=== PATIENT | male | born 1975 | race Caucasian/White ===

== ENCOUNTER → 2017-09-27 14:51 | Outpatient (CLI) | payer BC, SELFPAY ==
[2017-09-27 17:40] LABS: Basophils % 0.4 % (0.1-2.0); Eosinophils # 0.2 K/mm3 (0.0-0.4); Eosinophils % 1.6 % (0.1-12.0); Hematocrit 48.9 % (42.0-52.0); Hemoglobin 15.7 g/dL (14.1-18.0); Lymphocytes # 3.4 K/mm3 (0.7-4.5); Lymphocytes % 34.3 K/mm3 (10-50); Mean Corpuscular Hemoglobin 27.3 pg (27.0-31.2); Mean Corpuscular Volume 85.4 fl (80-94); Mean Platelet Volume 7.2 fl (7.4-10.4); Monocytes # 0.7 K/mm3 (0.1-1.0); Monocytes % 7.3 % (1.7-9.3); Neutrophils # 5.6 K/mm3 (1.8-7.8); Neutrophils % 56.4 % (37.0-80.0); Platelet Count 344 K/mm3 (142-424); Red Blood Count 5.73 M/mm3 (4.60-6.20); Red Cell Distribution Width 12.9 % (11.5-17.5)
[2017-09-27 18:15] LABS: Alanine Aminotransferase 34 U/L (12-78); Albumin/Globulin Ratio 1.2 (1.1-1.8); Alkaline Phosphatase 82 U/L (46-116); Anion Gap 13.1 mEq/L (5-15); Bilirubin,Total 0.5 mg/dL (0.2-1.0); Blood Urea Nitrogen 15 mg/dL (7-18); Calcium 9.6 mg/dL (8.5-10.1); Carbon Dioxide 28 mmol/L (21.0-32.0); Chloride 102 mmol/L (98-107); Chol/HDL Ratio 6.2 (1-3.5); Cholesterol 240 mg/dL (140-200); Creatinine,Serum 0.87 mg/dL (0.70-1.30); Estimated Glomerular Filt Rate 97 ml/min (>60); GFR (African American) 117 ML/MIN (>60); Globulin 3.3 gm/dl (1.3-3.2); Glucose 82 mg/dL (74-106); HDL Cholesterol 39 mg/dL (27-67); Sodium 139 mmol/L (136-145); T4 (Thyroxine) 8.7 ug/dl (4.7-13.3); Thyroid Stimulating Hormone 1.69 uIU/ml (0.358-3.740); Total Protein,Serum 7.3 gm/dL (6.4-8.2)
[2017-09-27 18:19] LABS: Triglycerides 591 mg/dL (30-200)
[2017-09-27 18:20] LABS: Aspartate Amino Transferase 17 U/L (15-37); Potassium 4.1 mmoL/L (3.5-5.1)
[2017-09-30 13:27] LABS: Vitamin D 25 Hydroxy 22.3 ng/mL (30.0-100.0)
== END ==
PROVIDERS: Visit Provider Nurse Practitioner Family
DX: M54.40 Lumbago with sciatica, unspecified side (principal)
CPT/HCPCS: 80053; 80061; 82652; 84436; 84443; 85025

== ENCOUNTER → 2018-10-17 13:22 | Outpatient (CLI) | payer BC, SELFPAY ==
[2018-10-17 13:35] LABS: Basophils # 0.1 K/mm3 (0-0.2); Eosinophils # 0.2 K/mm3 (0.0-0.4); Eosinophils % 3.4 % (0.1-12.0); Hematocrit 45.3 % (42.0-52.0); Hemoglobin 14.6 g/dL (14.1-18.0); Lymphocytes # 2.3 K/mm3 (0.7-4.5); Lymphocytes % 38.7 % (10-50); Mean Corpuscular HGB Conc 32.1 g/dL (31.8-35.4); Mean Corpuscular Hemoglobin 27.2 pg (27.0-31.2); Mean Corpuscular Volume 84.7 fl (80-94); Mean Platelet Volume 7.7 fl (7.4-10.4); Monocytes # 0.4 K/mm3 (0.1-1.0); Monocytes % 6.6 % (1.7-9.3); Neutrophils % 50.4 % (37.0-80.0); Platelet Count 303 K/mm3 (142-424); Red Blood Count 5.35 M/mm3 (4.60-6.20); Red Cell Distribution Width 13.1 % (11.5-17.5)
[2018-10-17 14:27] LABS: Alanine Aminotransferase 45 U/L (12-78); Albumin/Globulin Ratio 1.3 (1.1-1.8); Alkaline Phosphatase 71 U/L (46-116); Anion Gap 14.8 mEq/L (5-15); Aspartate Amino Transferase 17 U/L (15-37); Bilirubin,Total 0.5 mg/dL (0.2-1.0); Blood Urea Nitrogen 18 mg/dL (7-18); Calcium 9.4 mg/dL (8.5-10.1); Carbon Dioxide 27 mmol/L (21.0-32.0); Chloride 105 mmol/L (98-107); Chol/HDL Ratio 3.8 (1-3.5); Cholesterol 196 mg/dL (140-200); Creatinine,Serum 1.01 mg/dL (0.70-1.30); Estimated Glomerular Filt Rate 81 ml/min (>60); Free T4 (Free Thyroxine) 1.02 ng/dl (0.76-1.46); GFR (African American) 98 ML/MIN (>60); Globulin 3.1 gm/dl (1.3-3.2); Glucose 99 mg/dL (74-106); HDL Cholesterol 52 mg/dL (27-67); LDL Cholesterol 133 mg/dL (0-130); Potassium 4.8 mmoL/L (3.5-5.1); Sodium 142 mmol/L (136-145); Thyroid Stimulating Hormone 1.64 uIU/ml (0.358-3.740); Total Protein,Serum 7.1 gm/dL (6.4-8.2); Triglycerides 57 mg/dL (30-200); VLDL Cholesterol 11 mg/dL (0-40)
[2018-10-19 21:40] LABS: PSA, Free 0.24 ng/mL; Prostate Specific Ag 1.2 ng/mL (0.0-4.0); Vitamin D 25 Hydroxy 37.3 ng/mL (30.0-100.0)
== END ==
PROVIDERS: Visit Provider Emergency Medicine
DX: R53.83 Other fatigue (principal); I10 Essential (primary) hypertension
CPT/HCPCS: 80053; 80061; 82652; 84153; 84154; 84439; 84443; 85025

== ENCOUNTER → 2019-01-02 16:55 | Outpatient (CLI) | payer BC, SELFPAY ==
[2019-01-02 19:47] LABS: Amphetamine/Metha Screen,Urine Negative ng/mL (<1000); Barbiturates Screen,Urine Negative ng/mL (<200); Benzodiazepines Screen,Urine Negative ng/mL (<200); Cannabinoid Screen,Urine Negative ng/mL (<50); Cocaine Screen,Urine Negative ng/mL (<300); Methadone Screen,Urine Negative ng/mL (<300); Opiate Screen,Urine Negative ng/mL (<300); Phencyclidine Screen,Urine Negative ng/mL (<25)
== END ==
PROVIDERS: Visit Provider Emergency Medicine
DX: F90.9 Attention-deficit hyperactivity disorder, unspecified type (principal)
CPT/HCPCS: 80305

== ENCOUNTER 2019-11-04 00:01 | Emergency (ER) | payer OTHER, SELFPAY ==
[2019-11-04 00:11] VITALS: BP 179/101; PULSE 77; RESP 19; TEMP 36.6; O2SAT 98; BMI 38.4
[2019-11-04 00:39] VITALS: BP 151/75; PULSE 68; RESP 18; O2SAT 95
[2019-11-04 00:44] LABS: Basophils # 0.1 K/mm3 (0-0.2); Basophils % 0.9 % (0.1-2.0); Eosinophils # 0.5 K/mm3 (0.0-0.4); Eosinophils % 4.5 % (0.1-12.0); Hematocrit 41.6 % (42.0-52.0); Lymphocytes % 32.9 % (10-50); Mean Corpuscular Hemoglobin 29.9 pg (27.0-31.2); Mean Corpuscular Volume 83.1 fl (80-94); Mean Platelet Volume 7.5 fl (7.4-10.4); Monocytes # 0.7 K/mm3 (0.1-1.0); Neutrophils # 6.7 K/mm3 (1.8-7.8); Neutrophils % 55.6 % (37.0-80.0); Platelet Count 283 K/mm3 (142-424); Red Blood Count 5.01 M/mm3 (4.60-6.20); Red Cell Distribution Width 13.1 % (11.5-17.5)
[2019-11-04 00:51] LABS: Alanine Aminotransferase 27 U/L (12-78); Albumin Level 4.6 g/dl (3.5-5.0); Albumin/Globulin Ratio 1.5 (1.1-1.8); Alkaline Phosphatase 85 U/L (38-126); Anion Gap 13.9 mEq/L (5-15); Aspartate Amino Transferase 30 U/L (17-59); Bilirubin,Total 0.4 mg/dl (0.2-1.3); Blood Urea Nitrogen 15 mg/dl (9-20); Calcium 9.4 mg/dl (8.4-10.2); Carbon Dioxide 29 mmol/L (22.0-30.0); Chloride 98 mmol/L (98-107); Creatinine Clearance Estimated 177 mL/min (50-200); Estimated Glomerular Filt Rate 92 ml/min (>60); GFR (African American) 111 ML/MIN (>60); Glucose 114 mg/dl (74-100); Potassium 3.9 mmoL/L (3.5-5.1); Sodium 137 mmol/L (136-145); Total Protein,Serum 7.6 g/dl (6.3-8.2)
[2019-11-04 01:00] VITALS: BP 158/93; PULSE 74; RESP 18; O2SAT 95
[2019-11-04 01:30] VITALS: BP 160/89; PULSE 73; RESP 16; O2SAT 95
--- NOTE | 2019-11-04 01:43 | HMH.EDSKAF ---
ED Disposition Clinical Impression: Poison juan dermatitis Disposition: Home, Self-Care Condition on Discharge: Fair Instructions: DI for Skin Abscess Additional Instructions: You appear to have poison juan dermatitis with secondary infection Given a shot of Solu-Medrol 125 mg IM as well as Benadryl, Plan is to discharge home on a Medrol Dosepak as well as Benadryl; Will also prescribe an antibiotic as there appears to be secondary infection Prescriptions: cephALEXin [Keflex 500mg Cap] 500 mg PO TID 7 Days #21 cap Prescription Printed methylPREDNISolone [Medrol] 4 mg PO DIRECTED #21 pack Prescription Printed Referrals: Freddie Brown MD [Primary Care Provider] - Time of Disposition: 01:52 - Critical Care Critical Care Time: No Attestation: On 11/04/19, the high probability of a clinically significant, sudden or life threatening deterioration of the following system(s) required my full and direct attention, intervention and personal management. The time I documented below is in addition to time spent performing reported procedures but includes the following listed in this critical care notation. Medical Decision Making - Medical Records Medical records reviewed: Yes: I reviewed the patient's medical records. MR Comment: pt developed rash to right leg that has worsened over the last week despite using poison juan cream, calamine, benadryl, states he gets this every year. Given a shot of Solu-Medrol 125 mg IM as well as Benadryl, Plan is to discharge patient home on a Medrol Dosepak as well as Benadryl; Will also prescribe an antibiotic as there appears to be secondary infection - Blu Inquiry Pt receiving controlled substance: No Vital Signs: 11/04/19 00:11 11/04/19 00:39 Temperature 97.8 F Temperature Source Oral Pulse Rate [Right Brachial] 77 68 Respiratory Rate 19 18 Blood Pressure [Right Arm] 179/101 H 151/75 H Blood Pressure Mean [Right Arm] 127 100 Blood Pressure Source [Right Arm] Automatic Cuff Automatic Cuff Blood Pressure Position [Right Arm] Sitting Sitting 02 Sat by Pulse Oximetry 98 95 Oxygen Delivery Method Room Air Room Air - Lab Data Lab results reviewed: Yes: I reviewed the patient's lab results. Lab Results 11/04/19 00:30: WBC 12.0 H, RBC 5.01, Hgb 15.0, Hct 41.6 L, MCV 83.1, MCH 29.9, MCHC 36.0 H, RDW 13.1, Plt Count 283, MPV 7.5, Neut % (Auto) 55.6, Lymph % (Auto) 32.9, Early % (Auto) 6.0, Eos % (Auto) 4.5, Baso % (Auto) 0.9, Neut # (Auto) 6.7, Lymph # (Auto) 4.0, Early # (Auto) 0.7, Eos # (Auto) 0.5 H, Baso # (Auto) 0.1 11/04/19 00:30: Sodium 137, Potassium 3.9, Chloride 98, Carbon Dioxide 29, Anion Gap 13.9, BUN 15, Creatinine 0.90, Estimated Creat Clear 177, Estimated GFR 92, Est GFR ( Amer) 111, Glucose 114 H, Calcium 9.4, Total Bilirubin 0.4, AST 30, ALT 27, Alkaline Phosphatase 85, Total Protein 7.6, Albumin 4.6, Globulin 3.0, Albumin/Globulin Ratio 1.5 Result diagrams: 11/04/19 00:30 11/04/19 00:30 Orders (Tests/Meds): ED MEDICATIONS Discontinued Medications Generic Name Dose Route Start Last Admin Trade Name Freq PRN Reason Stop Dose Admin Diphenhydramine HCl 25 mg 11/04/19 00:27 11/04/19 00:44 Benadryl 50mg/1ml Vial IV 11/04/19 00:28 25 mg ONCE ONE Administration Methylprednisolone Sodium Succinate 125 mg 11/04/19 00:27 11/04/19 00:44 Solu-Medrol 125mg/2ml Vial IV 11/04/19 00:28 125 mg ONCE ONE Administration ORDERS Category Date Time Status Blood Culture Stat Micro 11/04/19 00:30 Received Skin/Abscess/FB HPI - General Chief complaint: Skin/Abscess/Foreign Body Stated complaint: Rash on Rt Leg Time Seen by Provider: 11/04/19 01:35 Mode of Arrival: Family Vehicle Source of Information: Patient Limitations: No Limitations Description of Symptoms (Recalled from ER Triage Doc. by RN): pt developed rash to right leg that has worsened over the last week despite using poison juan cream, calamine, benadryl
[2019-11-04 02:07] VITALS: BP 152/94; PULSE 73; RESP 18; TEMP 36.6; O2SAT 98
== END 2019-11-04 02:21 | disposition home or self-care (01) ==
PROVIDERS: Emergency Provider Emergency Medicine; PCP Emergency Medicine
DX: L23.7 Allergic contact dermatitis due to plants, except food (principal); Z88.5 Allergy status to narcotic agent; F17.290 Nicotine dependence, other tobacco product, uncomplicated
CPT/HCPCS: 80053; 85025; 87040; 96374; 96375; 99283

== ENCOUNTER 2020-08-11 12:08 | Emergency (ER) | payer OTHER, SELFPAY ==
[2020-08-11 12:29] VITALS: BP 155/91; PULSE 76; RESP 14; TEMP 37.1; O2SAT 99; BMI 33.9
--- NOTE | 2020-08-11 13:10 | HMH.EDUTC ---
[facility] [place] Disposition Clinical Impression: Bronchitis Sinusitis Qualifiers: Sinusitis location: unspecified location Chronicity: acute Recurrence: non-recurrent Qualified Code(s): J01.90 - Acute sinusitis, unspecified Disposition: Home, Self-Care Condition on Discharge: Good Instructions: DI for Sinusitis, DI for Acute Bronchitis Additional Instructions: Drink plenty of fluids. Take tylenol or ibuprofen for pain or fever. Take the medications as directed. Follow up with your regular doctor. GO TO THE ER FOR ANY WORSENING SYMPTOMS The cough medication (promethazine dm) will make you drowsy, so don't drive or operate heavy machinery after taking it. Prescriptions: Promethazine/Dextromethorphan [Promethazine-Dm Syrup] 5 ml PO Q6HP PRN #240 syrup PRN Reason: Cough Transmission Status: Received by [id number] predniSONE [Prednisone 20mg Tab] 20 mg PO BID 4 Days #8 tab Transmission Status: Received by [id number] Azithromycin [Z-Adrian 250mg Tab*] 250 mg PO UD DOSE PK #6 tab Transmission Status: Received by [id number] Referrals: Freddie Brown MD [Primary Care Provider] - Forms: Work/School Release Time of Disposition: 13:12 Medical Decision Making - Medical Records Medical records reviewed: No: I reviewed the patient's medical records. - Blu Inquiry Pt receiving controlled substance: No Vital Signs: 08/11/20 12:29 08/11/20 13:19 Temperature 98.8 F 98.8 F Temperature Source Oral Oral Pulse Rate 76 Pulse Rate [Right Radial] 76 Respiratory Rate 14 16 Blood Pressure 155/91 H Blood Pressure [Right Arm] 155/91 H Blood Pressure Mean [Right Arm] 112 02 Sat by Pulse Oximetry 99 Oxygen Delivery Method Room Air Room Air [facility] [place] HPI - General Stated complaint: cough,congestion,runny nose Time Seen by Provider: 08/11/20 13:10 Mode of Arrival: Ambulatory Source of Information: Patient Limitations: No Limitations Description of Symptoms (Recalled from Triage Doc. by RN): Runny nose, head congestion, cough HEENT Symptoms (Recalled from RN notes): No Resp Symptoms (Recalled from RN notes): Yes Skin Symptoms (Recalled from RN notes): No MS Symptoms (Recalled from RN notes): No Functional Status (Recalled from RN notes): na - History of Present Illness Provider Complaint: He states that for the past 3 days he has had sinus and chest congestion. He denies any fever or chills. - Related Data Previous Rx's Medication Instructions Recorded methylphenidate HCl 36 mg 36 mg PO DAILY #30 tab 01/02/19 tablet,extended release 24 hr buspirone 10 mg tablet 10 mg PO BID #60 tab 05/07/19 cephALEXin [Keflex 500mg Cap] 500 mg PO TID 7 Days #21 cap 11/04/19 methylPREDNISolone [Medrol] 4 mg PO DIRECTED #21 pack 11/04/19 Azithromycin [Z-Adrian 250mg Tab*] 250 mg PO UD DOSE PK #6 tab 08/11/20 Promethazine/Dextromethorphan 5 ml PO Q6HP PRN #240 syrup 08/11/20 [Promethazine-Dm Syrup] predniSONE [Prednisone 20mg 20 mg PO BID 4 Days #8 tab 08/11/20 Tab] Allergies Allergy/AdvReac Type Severity Reaction Status Date / Time acetaminophen [From PERCOCET] Allergy Intermediate I-ITCHING Verified 03/09/19 15:12 oxycodone [From PERCOCET] Allergy Intermediate I-ITCHING Verified 03/09/19 15:12 - Worker's Comp Is this a Worker's Comp case?: No [facility] History - Hepatitis A Screen Drug use history?: No High risk sexual behaviors?: No History of sexually transmitted infection?: No Currently employed?: No Childcare worker?: No Do you have indoor plumbing?: Yes Do you have electricity?: Yes Attestation statement:: This patient has been screened for Hepatitis A risk factors. I have reviewed the patient's past medical history: Yes Medical History: Reports:: Anxiety Denies:: Cancer, Diabetes Mellitus Type 1, Diabetes Mellitus Type 2, MRSA Comment: adhd Other Surgeries: Yes: No Previous Surgery Amputation: No Fractures: No - Social History Smok
[2020-08-11 13:19] VITALS: BP 155/91; PULSE 76; RESP 16; TEMP 37.1; O2SAT 99
== END 2020-08-11 13:21 | disposition home or self-care (01) ==
PROVIDERS: Emergency Provider Nurse Practitioner Family; PCP Emergency Medicine
DX: Z20.822 Contact with and (suspected) exposure to COVID-19 (principal); J20.9 Acute bronchitis, unspecified; J01.90 Acute sinusitis, unspecified; F41.9 Anxiety disorder, unspecified
CPT/HCPCS: 99202; G0463; U0003

== ENCOUNTER 2020-09-26 15:29 | Emergency (ER) | payer OTHER, SELFPAY ==
[2020-09-26 15:36] VITALS: BP 157/91; PULSE 88; RESP 16; TEMP 36.6; O2SAT 98; BMI 34.4
[2020-09-26 15:40] VITALS: BP 157/91; PULSE 88; RESP 16; TEMP 36.6; O2SAT 98; BMI 34.5
[2020-09-26 16:33] VITALS: BP 157/91; PULSE 88; RESP 16; TEMP 36.7; O2SAT 98
--- NOTE | 2020-09-26 16:36 | HMH.EDUTC ---
[facility] [place] Disposition Clinical Impression: Laceration of left hand Qualifiers: Encounter type: initial encounter Foreign body presence: without foreign body Qualified Code(s): S61.412A - Laceration without foreign body of left hand, initial encounter Disposition: Home, Self-Care Condition on Discharge: Good Instructions: How to Care for a Laceration After Repair, DI for Laceration Repair -- Simple Additional Instructions: Keep the wound clean and dry. Keep a dressing on it if you are going to be getting it dirty. Watch the for signs of infection, such as redness, swelling, drainage, fever. etc. Take tylenol or ibuprofen for pain. Follow up with your regular doctor. Return in 10 days to have the sutures removed. GO TO THE ER FOR ANY WORSENING SYMPTOMS OR CONCERNS. Prescriptions: cephALEXin [cephALEXin 500mg capsule] 500 mg PO Q6H 10 Days #40 cap Transmission Status: Received by [id number] Referrals: Freddie Brown MD [Primary Care Provider] - Time of Disposition: 16:38 Medical Decision Making - Medical Records Medical records reviewed: No: I reviewed the patient's medical records. - Blu Inquiry Pt receiving controlled substance: No Vital Signs: 09/26/20 15:36 09/26/20 15:40 09/26/20 16:33 Temperature 98 F 98 F 98.0 F Temperature Source Oral Oral Pulse Rate 88 Pulse Rate [Radial] 88 88 Respiratory Rate 16 16 16 Blood Pressure 157/91 H Blood Pressure [Right Arm] 157/91 H 157/91 H Blood Pressure Mean [Right Arm] 113 113 Blood Pressure Source [Right Arm] Automatic Cuff Blood Pressure Position [Right Arm] Sitting 02 Sat by Pulse Oximetry 98 98 Oxygen Delivery Method Room Air Room Air Orders (Tests/Meds): ED MEDICATIONS Discontinued Medications Generic Name Dose Route Start Last Admin Trade Name Freq PRN Reason Stop Dose Admin Tetanus/Reduced Diphtheria/Acell Pertussis 0.5 ml 09/26/20 16:03 09/26/20 16:25 Tet/Diphth/Pert-Adult 0.5ml Syringe IM 09/26/20 16:04 0.5 ml .ONCE ONE Administration [facility] [place] HPI - General Stated complaint: [id number] [id number] lac to L hand Time Seen by Provider: 09/26/20 16:00 Mode of Arrival: Ambulatory Source of Information: Patient Limitations: No Limitations Description of Symptoms (Recalled from Triage Doc. 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 His tetanus immunization is not up to date. - Related Data Previous Rx's Medication Instructions Recorded methylphenidate HCl 36 mg 36 mg PO DAILY #30 tab 01/02/19 tablet,extended release 24 hr buspirone 10 mg tablet 10 mg PO BID #60 tab 05/07/19 cephALEXin [Keflex 500mg Cap] 500 mg PO TID 7 Days #21 cap 11/04/19 methylPREDNISolone [Medrol] 4 mg PO DIRECTED #21 pack 11/04/19 Azithromycin [Z-Adrian 250mg Tab*] 250 mg PO UD DOSE PK #6 tab 08/11/20 Promethazine/Dextromethorphan 5 ml PO Q6HP PRN #240 syrup 08/11/20 [Promethazine-Dm Syrup] predniSONE [Prednisone 20mg 20 mg PO BID 4 Days #8 tab 08/11/20 Tab] cephALEXin [cephALEXin 500mg 500 mg PO Q6H 10 Days #40 cap 09/26/20 capsule] Allergies Allergy/AdvReac Type Severity Reaction Status Date / Time acetaminophen [From PERCOCET] Allergy Intermediate I-ITCHING Verified 03/09/19 15:12 oxycodone [From PERCOCET] Allergy Intermediate I-ITCHING Verified 03/09/19 15:12 - Worker's Comp Is this a Worker's Comp case?: No [facility] History - Hepatitis A Screen Drug use history?: No High risk sexual behaviors?: No History of sexually transmitted infection?: No Cur
== END 2020-09-26 16:44 | disposition home or self-care (01) ==
PROVIDERS: Emergency Provider Nurse Practitioner Family; PCP Emergency Medicine
DX: S61.412A Laceration without foreign body of left hand, initial encounter (principal); W26.0XXA Contact with knife, initial encounter; Y92.019 Unspecified place in single-family (private) house as the place of occurrence of the external cause; Z23 Encounter for immunization
CPT/HCPCS: 12001; 90471; 90715; 99202; G0463

== ENCOUNTER 2020-10-19 13:40 | Emergency (ER) | payer OTHER, SELFPAY ==
[2020-10-19 13:40] VITALS: BP 151/99; PULSE 72; RESP 19; TEMP 36.8; O2SAT 98; BMI 30.1
[2020-10-19 14:34] VITALS: BP 151/99; PULSE 72; RESP 19; TEMP 36.8; O2SAT 98
--- NOTE | 2020-10-19 14:38 | HMH.EDUTC ---
[facility] [place] Disposition Clinical Impression: Contact dermatitis Qualifiers: Contact dermatitis type: allergic Contact dermatitis trigger: unspecified trigger Qualified Code(s): L23.9 - Allergic contact dermatitis, unspecified cause Disposition: Home, Self-Care Condition on Discharge: Good Instructions: DI for Poison Zully Allergy Additional Instructions: Avoid contact with the offending substance (poison zully). Don't start the oral steroids until tomorrow. Don't put the topical steroids (triamcinolone) on your face or your groin. Follow up with your regular doctor. GO TO THE ER FOR ANY WORSENING SYMPTOMS OR CONCERNS Prescriptions: methylPREDNISolone [Medrol] 4 mg PO DIRECTED 6 Days #21 tab.ds.pk Transmission Status: Received by [id number] Triamcinolone Acetonide 1 applicatio TP TIDP PRN 7 Days #1 tube PRN Reason: Itching Transmission Status: Received by [id number] Referrals: Freddie Brown MD [Primary Care Provider] - Forms: Work/School Release Time of Disposition: 14:40 Medical Decision Making - Medical Records Medical records reviewed: No: I reviewed the patient's medical records. - Blu Inquiry Pt receiving controlled substance: No Vital Signs: 10/19/20 13:40 10/19/20 14:34 Temperature 98.3 F 98.3 F Temperature Source Oral Pulse Rate 72 Pulse Rate [Left Brachial] 72 Respiratory Rate 19 19 Blood Pressure 151/99 H Blood Pressure [Left Arm] 151/99 H Blood Pressure Mean [Left Arm] 116 Blood Pressure Source [Left Arm] Automatic Cuff Blood Pressure Position [Left Arm] Sitting 02 Sat by Pulse Oximetry 98 Oxygen Delivery Method Room Air Orders (Tests/Meds): ED MEDICATIONS Discontinued Medications Generic Name Dose Route Start Last Admin Trade Name Freq PRN Reason Stop Dose Admin Methylprednisolone Sodium Succinate 125 mg 10/19/20 14:17 10/19/20 14:22 Methylprednisolone Sod Succ 125mg Vial IM 10/19/20 14:18 125 mg ONCE ONE Administration [facility] [place] HPI - General Stated complaint: poision zully Time Seen by Provider: 10/19/20 13:45 Mode of Arrival: Ambulatory Source of Information: Patient Limitations: No Limitations Description of Symptoms (Recalled from Triage Doc. by RN): PATIENT C/O POISON ZULLY ALL OVER X 2 DAYS HEENT Symptoms (Recalled from RN notes): No Resp Symptoms (Recalled from RN notes): No Skin Symptoms (Recalled from RN notes): Yes MS Symptoms (Recalled from RN notes): No Functional Status (Recalled from RN notes): WNL - History of Present Illness Provider Complaint: He states that for the past 2 days he has had poison zully symptoms on his legs, arms, neck and face. - Related Data Previous Rx's Medication Instructions Recorded Triamcinolone Acetonide 1 applicatio TP TIDP PRN 7 Days #1 10/19/20 tube methylPREDNISolone [Medrol] 4 mg PO DIRECTED 6 Days #21 10/19/20 tab.ds.pk Allergies Allergy/AdvReac Type Severity Reaction Status Date / Time acetaminophen [From PERCOCET] Allergy Intermediate I-ITCHING Verified 03/09/19 15:12 oxycodone [From PERCOCET] Allergy Intermediate I-ITCHING Verified 03/09/19 15:12 - Worker's Comp Is this a Worker's Comp case?: No [facility] History - Hepatitis A Screen Drug use history?: No High risk sexual behaviors?: No History of sexually transmitted infection?: No Currently employed?: No Childcare worker?: No Do you have indoor plumbing?: Yes Do you have electricity?: Yes Attestation statement:: This patient has been screened for Hepatitis A risk factors. I have reviewed the patient's past medical history: Yes Medical History: Reports:: Anxiety Denies:: Cancer, Diabetes Mellitus Type 1, Diabetes Mellitus Type 2, MRSA Comment: adhd Other Surgeries: Yes: No Previous Surgery Amputation: No Fractures: No - Social History Smoking Status: Never smoker Tobacco Type: smokeless tobacco (he does dip; a few pinches daily) Alcohol Intake: never Substance Use Type: denies us
== END 2020-10-19 14:42 | disposition home or self-care (01) ==
PROVIDERS: Emergency Provider Nurse Practitioner Family; PCP Emergency Medicine
DX: L23.7 Allergic contact dermatitis due to plants, except food (principal); F41.9 Anxiety disorder, unspecified; Z88.5 Allergy status to narcotic agent
CPT/HCPCS: 96372; 99202; G0463

== ENCOUNTER 2021-01-19 11:03 | Emergency (ER) | payer OTHER, SELFPAY ==
[2021-01-19 11:07] VITALS: BP 141/96; PULSE 88; RESP 16; TEMP 36.9; O2SAT 99; BMI 31.9
--- NOTE | 2021-01-19 11:35 | HMH.EDUTC ---
[facility] [place] Impression: Poison blanquita Disposition: Home, Self-Care Condition on Discharge: Good Instructions: Poison Blanquita, Poison [place], Poison [place], Summertime Rashes: Poison Blanquita, [place], and [place] Additional Instructions: Over the counter benadryl may help with itching Over the counter calamine lotion may help with dry the rash Oatmeal baths may help with itching and to dry the rash Return if needed Straight to ER if any life threatening symptoms Prescriptions: predniSONE [Prednisone 10mg Tab Dose-Pack] 10 mg PO UD DOSE PK #21 tab Prescription Printed Referrals: Freddie Brown MD [Primary Care Provider] - As needed Time of Disposition: 11:50 Medical Decision Making - Blu Inquiry Pt receiving controlled substance: No Blu was queried for this patient: No Vital Signs: 01/19/21 11:07 Temperature 98.4 F Temperature Source Oral Pulse Rate [Left] 88 Respiratory Rate 16 Blood Pressure [Right Arm] 141/96 H Blood Pressure Mean [Right Arm] 111 02 Sat by Pulse Oximetry 99 Orders (Tests/Meds): ED MEDICATIONS Discontinued Medications Generic Name Dose Route Start Last Admin Trade Name Yolanda PRN Reason Stop Dose Admin Methylprednisolone Sodium Succinate 125 mg 01/19/21 11:35 01/19/21 11:41 Methylprednisolone Sod Succ 125mg Vial IM 01/19/21 11:36 125 mg ONCE ONE Administration [facility] [facility] [place] - General Stated complaint: rash and in eye Time Seen by Provider: 01/19/21 11:35 Mode of Arrival: Ambulatory Source of Information: Patient Limitations: No Limitations Description of Symptoms (Recalled from Triage Doc. by RN): pt has a poison blanquita rash on his face, R wrist, and R knee. x3 days HEENT Symptoms (Recalled from RN notes): No Resp Symptoms (Recalled from RN notes): No Skin Symptoms (Recalled from RN notes): Yes (poison blanquita on face, R wrist and R knee) MS Symptoms (Recalled from RN notes): No Functional Status (Recalled from RN notes): na - History of Present Illness Provider Complaint: Patient states that he recently went fishing and go into some poision blanquita States that he has it on his wrist, legs, and right side of face States that usually when he gets it he comes in and gets a shot and it clears it up - Related Data Previous Rx's Medication Instructions Recorded Triamcinolone Acetonide 1 applicatio TP TIDP PRN 7 Days #1 10/19/20 tube methylPREDNISolone [Medrol] 4 mg PO DIRECTED 6 Days #21 10/19/20 tab.ds.pk predniSONE [Prednisone 10mg Tab 10 mg PO UD DOSE PK #21 tab 01/19/21 Dose-Pack] Allergies Allergy/AdvReac Type Severity Reaction Status Date / Time acetaminophen [From PERCOCET] Allergy Intermediate I-ITCHING Verified 03/09/19 15:12 oxycodone [From PERCOCET] Allergy Intermediate I-ITCHING Verified 03/09/19 15:12 - Worker's Comp Is this a Worker's Comp case?: No [facility] History - Hepatitis A Screen Drug use history?: No High risk sexual behaviors?: No History of sexually transmitted infection?: No Currently employed?: No Childcare worker?: No Do you have indoor plumbing?: Yes Do you have electricity?: Yes Attestation statement:: This patient has been screened for Hepatitis A risk factors. 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 -see above - Psychiatric History Pschychiatric History:: Reports:: Anxiety Family Hx:: Hypertension ROS Obtained: Yes All systems reviewed & no additional complaints, Yes Systems reviewed as appropriate & no additional complaints - Constitutional Consti
[2021-01-19 11:48] VITALS: BP 141/96; PULSE 99; RESP 16; TEMP 36.9
== END 2021-01-19 11:52 | disposition home or self-care (01) ==
PROVIDERS: Emergency Provider Nurse Practitioner; PCP Emergency Medicine
DX: L23.7 Allergic contact dermatitis due to plants, except food (principal); Z88.6 Allergy status to analgesic agent
CPT/HCPCS: 96372; 99202; G0463

== ENCOUNTER → 2021-02-03 13:55 | Outpatient (CLI) | payer OTHER, SELFPAY ==
[2021-02-03 14:51] LABS: Basophils # 0.1 K/mm3 (0-0.2); Basophils % 1.2 % (0.1-2.0); Eosinophils # 0.2 K/mm3 (0.0-0.4); Eosinophils % 2.4 % (0.1-12.0); Hematocrit 42.6 % (42.0-52.0); Hemoglobin 14.4 g/dL (14.1-18.0); Mean Corpuscular HGB Conc 33.8 g/dL (31.8-35.4); Mean Corpuscular Hemoglobin 28.7 pg (27.0-31.2); Mean Corpuscular Volume 84.9 fl (80-94); Mean Platelet Volume 7.4 fl (7.4-10.4); Monocytes # 0.4 K/mm3 (0.1-1.0); Neutrophils # 4.6 K/mm3 (1.8-7.8); Neutrophils % 55.4 % (37.0-80.0); Platelet Count 322 K/mm3 (142-424); Red Blood Count 5.02 M/mm3 (4.60-6.20); Red Cell Distribution Width 13.3 % (11.5-17.5); White Blood Count 8.3 K/mm3 (4.8-10.8)
[2021-02-03 15:14] LABS: Alanine Aminotransferase 29 U/L (12-78); Albumin Level 4.1 g/dl (3.5-5.0); Albumin/Globulin Ratio 1.5 (1.1-1.8); Alkaline Phosphatase 74 U/L (38-126); Anion Gap 11.4 mEq/L (5-15); Aspartate Amino Transferase 25 U/L (17-59); Bilirubin,Total 0.5 mg/dl (0.2-1.3); Blood Urea Nitrogen 12 mg/dl (9-20); Calcium 9.3 mg/dl (8.4-10.2); Carbon Dioxide 28 mmol/L (22.0-30.0); Chloride 105 mmol/L (98-107); Chol/HDL Ratio 4.9 (1-3.5); Cholesterol 215 mg/dl (140-200); Estimated Glomerular Filt Rate 122 ml/min (>60); GFR (African American) 148 ML/MIN (>60); Globulin 2.7 g/dL (1.3-3.2); Glucose 100 mg/dl (74-100); HDL Cholesterol 44 mg/dl (40-60); Potassium 4.4 mmoL/L (3.5-5.1); Sodium 140 mmol/L (136-145); Total Protein,Serum 6.8 g/dl (6.3-8.2); Triglycerides 91 mg/dl (30-150); VLDL Cholesterol 18 mg/dL (0-40)
[2021-02-03 15:25] LABS: Direct LDL Cholesterol 136.23 mg/dL (100-129)
== END ==
PROVIDERS: Visit Provider Internal Medicine Adolescent Medicine
DX: Z00.00 Encounter for general adult medical examination without abnormal findings (principal); I10 Essential (primary) hypertension
CPT/HCPCS: 36415; 80053; 80061; 85025

== ENCOUNTER → 2021-05-12 16:22 | Outpatient (CLI) | payer OTHER, SELFPAY | PROVIDERS: Visit Provider Nurse Practitioner | DX: Z20.822 Contact with and (suspected) exposure to COVID-19 (principal) | CPT/HCPCS: C9803; U0003; U0005 ==

== ENCOUNTER → 2021-05-24 09:32 | Outpatient (CLI) | payer OTHER, SELFPAY | PROVIDERS: PCP Emergency Medicine; Visit Provider Nurse Practitioner | DX: U07.1 COVID-19 (principal) | CPT/HCPCS: C9803; U0003; U0005 ==

== ENCOUNTER 2021-11-27 04:48 | Emergency (ER) | payer OTHER, SELFPAY ==
[2021-11-27 04:49] VITALS: BP 158/98; PULSE 78; RESP 16; TEMP 36.8; O2SAT 99; BMI 34.4
--- NOTE | 2021-11-27 05:00 | PC.NURSE ---
Visual Acuity completed 30/20 in both eyes
--- NOTE | 2021-11-27 05:13 | HMH.EDGENADL ---
ED Disposition Clinical Impression: Corneal abrasion Qualifiers: Encounter type: initial encounter Laterality: left Qualified Code(s): S05.02XA - Injury of conjunctiva and corneal abrasion without foreign body, left eye, initial encounter Disposition: Home, Self-Care Condition on Discharge: Good Instructions: Corneal Abrasion Additional Instructions: Please use the antibiotic ointment provided to 3 times a day for the next 7 days. Follow-up with your eye doctor. Return to the emergency department for any new or worsening symptoms. Referrals: Freddie Brown MD [Primary Care Provider] - - Critical Care Critical Care Time: No Attestation: On , the high probability of a clinically significant, sudden or life threatening deterioration of the following system(s) required my full and direct attention, intervention and personal management. The time I documented below is in addition to time spent performing reported procedures but includes the following listed in this critical care notation. Medical Decision Making - Blu Inquiry Pt receiving controlled substance: No Orders (Tests/Meds): ED MEDICATIONS Generic Name Dose Route Start Last Admin Trade Name Freq PRN Reason Stop Dose Admin Erythromycin 0.25 gm 11/27/21 09:00 Erythromycin Base 3.5 Gm Oint...G. OP 12/27/21 08:59 TID WILBERT Discontinued Medications Generic Name Dose Route Start Last Admin Trade Name Freq PRN Reason Stop Dose Admin Fluorescein Sodium 1 mg 11/27/21 05:12 Fluorescein Sodium 1mg Strip OP 11/27/21 05:13 ONCE ONE Tetracaine HCl 0 ml 11/27/21 05:12 Tetracaine 0.5% Opth Jena 15ml OP 11/27/21 05:13 ONCE ONE Medical Decision Narrative: In summary, this patient is a 46-year-old male presenting to the emergency department for evaluation with concern for left eye injury that happened on Saturday. Differential diagnoses include foreign body, corneal abrasion, globe injury, orbital cellulitis. He reports that he has had mild foreign body sensation, conjunctival erythema, and photophobia not significant changes in vision, no pain with extraocular movements. No foreign body noted on exam. Patient 20/30 in both eyes, but patient states that he is supposed to wear glasses and does not. Small corneal abrasion noted with negative Turner sign. Corneal abrasion does not lie over pupil or iris. Based on exam, I feel that patient's symptoms are most likely due to a corneal abrasion. No other signs of infection, globe rupture, or other serious pathology noted. Patient was provided with erythromycin and instructions to use 3 times a day for 7 days. He expressed understanding and agreement. He was given strict return precautions and instructions to follow-up with his eye doctor. He expressed understanding agreement. At this time, he requests a work note. He was discharged in stable condition. General Adult HPI - General Stated complaint: AO 11/25/21 1300 left eye injury Time Seen by Provider: 11/27/21 04:55 Mode of Arrival: Ambulatory Source of Information: Patient Limitations: No Limitations - History of Present Illness HPI narrative: Patient is a 46-year-old male who denies significant past medical history presented to the emergency department for evaluation of an injury to his left eye. He reports that on Saturday evening he was underneath his son's vehicle changing brakes, when something fell down and hit him in the left eye. He felt immediate pain. He states that since then, he has had mild photophobia, foreign body sensation, and conjunctival erythema. He thought that it would go away but this morning, and he is supposed to drive to [place] for work today. He woke up and his symptoms were still present, though improved, so he decided to come in for evaluation because he felt that it is probably unsafe for him to drive to work. He denies any pain with extraocular movements, significant facial swelling, si
[2021-11-27 05:31] VITALS: BP 150/90; PULSE 80; RESP 18; TEMP 36.8; O2SAT 99
== END 2021-11-27 05:37 | disposition home or self-care (01) ==
PROVIDERS: Emergency Provider Emergency Medicine; PCP Emergency Medicine
DX: S05.02XA Injury of conjunctiva and corneal abrasion without foreign body, left eye, initial encounter (principal); W20.8XXA Other cause of strike by thrown, projected or falling object, initial encounter
CPT/HCPCS: 99282

== ENCOUNTER 2023-08-03 22:04 | Emergency (ER) | payer OTHER, SELFPAY ==
[2023-08-03 22:06] VITALS: BP 159/70; PULSE 85; RESP 16; TEMP 36.9; O2SAT 100; BMI 33.2
--- NOTE | 2023-08-03 22:18 | XR_ITS ---
PROCEDURE INFORMATION: Exam: XR Left Hand Exam date and time: 08/03/2023 10:43 PM Age: 48 years old Clinical indication: Injury or trauma; Laceration; Hand; Left; Additional info: Lac TECHNIQUE: Imaging protocol: Radiologic exam of the left hand. Views: 3 or more views. COMPARISON: No relevant prior studies available. FINDINGS: Bones/joints: No acute osseous injury. Soft tissues: There is some soft tissue swelling. No radiopaque foreign body is seen. IMPRESSION: No radiopaque foreign body or acute osseous abnormality.
--- NOTE | 2023-08-03 22:39 | ED_ITS ---
Discharge Plan Disposition Patient Disposition: Home, Self-Care Chief Complaint: Wound/Laceration Prescriptions Prescriptions: No Action prednisone 10 MG tablets,dose pack 10 mg PO UD DOSE PK Qty: 21 0RF triamcinolone acetonide 15 GM cream 1 applicatio TP TIDP PRN (Reason: Itching) 7 Days Qty: 1 0RF methylprednisolone 4 MG tablets,dose pack 4 mg PO DIRECTED 6 Days Qty: 21 0RF Referrals Follow up/Referrals: Chemo Jefferson DO [Primary Care Provider] - See instructions Activity Restrictions/Add. Instructions Additional Instructions/Restrictions: Call your family doctor to establish care for this visit to the emergency department and schedule follow-up within 48 hours to ensure improvement. If you have any worsening of your condition or any other concerning signs or symptoms, return to the emergency department or your primary care doctor for further evaluation. Stitches to be removed in 7 to 10 days. Clinical Impressions Clinical Impression: Laceration of hand Instructions Patient Instructions: DI for Laceration Repair Discharge ED Provider: Иван Lehman General Adult HPI General Chief complaint: Wound/Laceration Stated complaint: AO04/08@2200 LT thumb lac Time Seen by Provider: 08/03/23 22:10 Mode of Arrival: Ambulatory Source of Information: Patient Limitations: No Limitations Description of Symptoms (Recalled from ER Triage Doc. by RN): pt states was using a knife to remove a center cap of wheel and knife slipped. pt has laceration to lt thumb History of Present Illness HPI narrative: 48-year-old male up-to-date on tetanus presenting with puncture wound to his left hand. He was using a knife in the kitchen just prior to arrival. It was a clean kitchen steak knife. Punctured his left thumb. Had numbness initially in his hand, distal to the injury, this is resolving. Motor function intact. Please note that above description of symptoms, in this electronic medical record under categorization of recalled from ER triage doctor by RN are ref lective of an initial nursing assessment, however, is not reflective of my full history and physical exam that was personally taken and clarified. Consequentially, this preceding description of symptoms, which may include the patient's categorized chief complaint in the EMR, do not reflect my personal clinical impression, and the ultimate description of history of present illness and patient stated complaints should be deferred to this section of the note. Unless stated otherwise or congruent with this section of the note, additional signs, symptoms, or incongruence should be interpreted as inaccurate with my clinical impression. Related Data Previous Rx's Medication Instructions Recorded methylprednisolone 4 mg tablets in 4 mg PO DIRECTED 6 days ##21 10/19/20 a dose pack triamcinolone acetonide 0.025 % 1 applicatio TP TIDP PRN Itching 7 10/19/20 topical cream days #1 tube prednisone 10 mg tablets in a dose 10 mg PO UD DOSE PK #21 tabs 01/19/21 pack Allergies Allergy/AdvReac Type Severity Reaction Status Date / Time acetaminophen [From PERCOCET] Allergy Intermediate I-ITCHING Verified 03/09/19 15:12 oxycodone [From PERCOCET] Allergy Intermediate I-ITCHING Ver[facility] 03/09/19 15:[facility] Disclaimer: The information contained in this section may have been updated after the patient was seen, as this information can be updated by other users. Social History Smoking Status: Never smoker alcohol intake: never substance use type: denies use current occupational status: other Travel in the last 8 weeks: None housing: house number of children: 2 ROS Obtained: Yes All systems reviewed & no additional complaints except as documented Physical Exam General General appearance: alert and in no apparent distress Head Head exam: atraumatic and normocephalic Eye Eye exam: Present normal appearance, PERRL and EOMI ENT ENT exam: Present mucous membranes moist Neck Neck exam: Present normal inspection, full ROM and trachea midline Respiratory Respiratory exam: Absent respiratory distress, wheezes, stridor, accessory muscle use or prolonged expiratory phase Cardiovascular Cardiovascular exam: Present normal rhythm Abdominal Exam Abdominal exam: Present soft; Absent distention, tenderness, guarding, rebound or rigidity Extremities Exam Extremities exam: Present other (Small puncture wound thenar eminence. Subcentimeter. Numbness distally, motor function intact. Not grossly con taminated.); Absent edema Neurological Exam Neurological exam: Present alert, oriented X3, CN II-XII intact and normal gait; Absent motor sensory deficit Skin Skin exam: Present warm and dry; Absent diaphoresis or erythema Medical Decision Making Medical Records Medical records reviewed: Yes I reviewed the patient's medical records. Blu Inquiry Pt receiving controlled substance: No Blu was queried for this patient: No Vital Signs: 08/03/23 22:06 Temperature 98.5 F Temperature Source Oral Pulse Rate [Right] 85 Respiratory Rate 16 Blood Pressure [Right Arm] 159/70 H Blood Pressure Mean [Right Arm] 99 02 Sat by Pulse Oximetry 100 Orders (Tests/Meds): ORDERS Category Date Time Status Hand XR left minimum 3 views [XR hand LT min 3V] Stat Exams 08/03/23 22:18 Taken Medical Decision Narrative: 48-year-old male up-to-date on tetanus presenting with puncture wound to his left hand. He was using a knife in the kitchen just prior to arrival. It was a clean kitchen steak knife. Punctured his left thumb. Had numbness initially in his hand, distal to the injury, this is resolving. Motor function intact. History obtained with patient. Motor function intact, some numbness distal to the injury. Not grossly contaminated. Differential includes laceration, musculoskeletal injury, sensory neurologic injury, foreign body, among others. X-rays of the left hand were obtained to evaluate for foreign body, these were negative. Laceration repaired. Because patient at baseline without signs or symptoms of clinical decompensation, deemed appropriate for discharge. Results were relayed to patient who voiced understanding and were agreeable to outpatient management and follow up. I discussed my clinical impression with patient and answered all questions. At this time, the evidence for any other entities in the differential is insufficient to warrant any further testing or ED observation. This was explained as well. Advisory was given that persistent or worsening symptoms require further evaluation. I confirmed the understanding of this discussion. Procedures Laceration Laceration 1: Site: hand Side (If applicable): left Size (cm): 1 Description: linear Depth: simple, single layer Local Anesthetic: lidocaine 1% Amount of anesthesia used (mL): 5 Pre-repair: wound explored Skin layer closed with: nylon Size (cm): 3-0 Number of sutures: 3 Critical Care Critical Care Time Critical Care Time: No
[2023-08-03 23:08] VITALS: BP 159/70; PULSE 85; RESP 16; TEMP 36.9; O2SAT 100
== END 2023-08-03 23:09 | disposition home or self-care (01) ==
PROVIDERS: Emergency Provider Emergency Medicine; PCP Internal Medicine
DX: S61.412A Laceration without foreign body of left hand, initial encounter (principal); W26.0XXA Contact with knife, initial encounter
CPT/HCPCS: 12001; 73130; 99283

== ENCOUNTER 2023-10-05 12:04 | Emergency (ER) | payer OTHER, SELFPAY ==
--- NOTE | 2023-10-05 12:12 | XR_ITS ---
PROCEDURE INFORMATION: Exam: XR Right Hand Exam date and time: 10/05/2023 12:10 PM Age: 48 years old Clinical indication: Injury or trauma; Other: Slammed hand in door; Blunt trauma (contusions or hematomas); Right; Additional info: Pain, slammed hand in door TECHNIQUE: Imaging protocol: Radiologic exam of the right hand. Views: 1 or 2 views. COMPARISON: No relevant prior studies available. FINDINGS: Bones/joints: Normal. Soft tissues: Normal. IMPRESSION: No acute findings.
[2023-10-05 12:20] VITALS: BP 139/89; PULSE 78; RESP 20; TEMP 37.1; O2SAT 97; BMI 30.4
--- NOTE | 2023-10-05 12:39 | ED_ITS ---
Discharge Plan Disposition Patient Disposition: Home, Self-Care Condition: Good Prescriptions Prescriptions: New cephalexin 500 mg tablet 500 mg PO BID 7 Days Qty: 14 0RF Referrals Follow up/Referrals: Chemo Jefferson DO [Primary Care Provider] - See instructions Activity Restrictions/Add. Instructions Additional Instructions/Restrictions: follow up in 7-10 days for suture removed monitor for s/s of infection return if any issues Clinical Impressions Clinical Impression: Laceration Instructions Patient Instructions: DI for Laceration Repair -- Finger, DI for Laceration Repair-Skin Glue [facility] [place] General Stated complaint: right middle finger slammed in door Mode of Arrival: Ambulatory Source of Information: Patient and Spouse Limitations: No Limitations Time Seen by Provider: 10/05/23 12:39 Description of Symptoms (Recalled from Triage Doc. by RN): PATIENT C/O INJURY TO RIGHT MIDDLE FINGER AFTER GETTING HIS HAND CAUGHT IN A TRUCK DOOR TODAY. PATIENT IS UP TO DATE ON TDAP HEENT Symptoms (Recalled from RN notes): No Resp Symptoms (Recalled from RN notes): No Skin Symptoms (Recalled from RN notes): Yes MS Symptoms (Recalled from RN notes): Yes Functional Status (Recalled from RN notes): WNL History of Present Illness Provider Complaint: 48 yr old male presents for rt middle finger laceration. pt states his hand was caught in the door when it was shut. tdap up to date Related Data Previous Rx's Medication Instructions Recorded cephalexin 500 mg tablet 500 mg PO BID 7 days #14 tabs 10/05/23 Allergies Allergy/AdvReac Type Severity Reaction Status Date / Time acetaminophen [From PERCOCET] Allergy Intermediate I-ITCHING Verified 03/09/19 15:12 oxycodone [From PERCOCET] Allergy Intermediate I-ITCHING Verified 03/09/19 15:12 Worker's Comp Is this a Worker's Comp case?: No [facility] Disclaimer: The information contained in this section may have been updated after the patient was seen, as this information can be updated by other users. 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 , CAR REPOSSESSOR) Smoking Status: Never smoker alcohol intake: never substance use type: denies use current occupational status: other Travel in the last 8 weeks: None housing: house number of children: 2 ROS Obtained: Yes All systems reviewed & no additional complaints except as documented Constitutional Constitutional: Reports system reviewed and no additional complaints, except as documented Eyes Eyes: Reports system reviewed and no additional complaints, except as documented ENT Ears, Nose, Mouth, and Throat: Reports system reviewed and no additional complaints, except as documented Cardiovascular Cardiovascular: Reports system reviewed and no additional complaints, except as documented Respiratory Respiratory: Reports system reviewed and no additional complaints, except as documented Musculoskeletal Musculoskeletal: Reports system reviewed and no additional complaints, except as documented and Reports as per HPI Integumentary/Breasts Skin/Breast: Reports system reviewed and no additional complaints, except as documented and Reports other (laceration) Neurologic Neurologic: Reports system reviewed and no additional complaints, except as documented Endocrine Endocrine: Reports system reviewed and no additional complaints, except as documented Hematologic/Lymphatic Henatologic/Lymphatic: Reports system reviewed and no additional complaints, except as documented Allergic/Immunologic Allergic/Immunologic: Reports system reviewed and no additional complaints, except as documented Physical Exam General General appearance: alert and in no apparent distress Eye Eye exam: Present normal appearance ENT ENT exam: Present normal exam Respiratory Respiratory exam: Present normal lung sounds bilaterally Cardiovascular Cardiovascular exam: Present regular rate and normal rhythm Expanded Upper Extremity Exam Right: Hand L/R front image: 2 1. laceration Neurological Exam Neurological exam: Present alert and oriented X3 Skin Skin exam: Present warm Expanded Skin Exam Type of lesion: Present laceration Distribution: other (rt middle finger) Medical Decision Making Medical Records Medical records reviewed: Yes I reviewed the patient's medical records. Blu Inquiry Pt receiving controlled substance: No Blu was queried for this patient: No Vital Signs: 10/05/23 12:20 Temperature 98.7 F Temperature Source Oral Pulse Rate [Left Brachial] 78 Respiratory Rate 20 Blood Pressure [Left Arm] 139/89 Blood Pressure Mean [Left Arm] 105 Blood Pressure Source [Left Arm] Automatic Cuff Blood Pressure Position [Left Arm] Sitting 02 Sat by Pulse Oximetry 97 Oxygen Delivery Method Room Air Orders (Tests/Meds): ORDERS Category Date Time Status Hand XR right 2 views [XR hand RT 2V] Stat Exams 10/05/23 12:12 Taken
[2023-10-05] MEDS: LIDOCAINE 1% PF 2ML AMPULE 1 ML SQ (12:48)
[2023-10-05 13:14] VITALS: BP 139/89; PULSE 78; RESP 20; TEMP 37.1; O2SAT 97
== END 2023-10-05 13:23 | disposition home or self-care (01) ==
PROVIDERS: Emergency Provider Nurse Practitioner Family; PCP Internal Medicine
DX: S61.212A Laceration without foreign body of right middle finger without damage to nail, initial encounter (principal); W23.0XXA Caught, crushed, jammed, or pinched between moving objects, initial encounter
CPT/HCPCS: 12001; 73120; 99213; 99214; G0463